=== PATIENT | female | born 1975 | race Caucasian/White ===

== ENCOUNTER 2018-04-23 13:22 | Day surgery (SDC) | payer OTHER ==
[~2018-04-23] VITALS: Ht 157.5 cm; Wt 74.9 kg
[2018-04-23 14:45] VITALS: Ht 157.5 cm; Wt 74.9 kg
[2018-04-23] MEDS ORDERED: NO MEDS (14:50)
--- NOTE | 2018-04-23 14:52 | PREAC ---
Date/Time of Note Date/Time of Note DATE: 04/23/18 TIME: 14:50 Anesthesia Eval and Record Evaluation Time Pre-Procedure Interview DATE: 04/23/18 TIME: 14:50 Age 42 Sex female NPO: 8 hrs Preoperative diagnosis Abdominal pain Planned procedure Colonoscopy Past Medical History Past Medical History: None Surgery & Anesthesia Issues No known issue Meds Anticoagulation: No Beta Bella within 24 hr: No Reason Beta Bella not given: Pt. not on B-Bella Reported Medications [No Meds] No Conflict Check 04/23/18 Meds reviewed: Yes Allergies Coded Allergies: No Known Allergy (Unverified , 04/23/18) Allergies Reviewed: Yes Labs/Studies Labs Reviewed: Reviewed by anesthesiologist test: Negative Studies: ECG Pre-procedure Exam Last vitals BP:112/56, P;74, spo2:100%, T:98,8 Airway: Adequate mouth opening, Adequate thyromental dist Mallampati: Mallampati II Teeth: Normal Lung: Normal Heart: Normal ASA Physical Status ASA physical status: 2 Emergency: None Planned Anesthetic General/MAC: MAC Planned Pain Management Parenteral pain med Pre-operative Attestations Prior to commencing anesthesia and surgery, the patient was re-evaluated, there was verification of: *The patient's identity *The results of appropriate recent lab work and preoperative vital signs *The above evaluation not changing prior to induction *Anesthetic plan, risk benefits, alternative and complications discussed with patient/family; questions answered; patient/family understands, accepts and wishes to proceed. ANGELIA SHARIF MD Apr 23, 2018 14:52
[2018-04-23] MEDS ORDERED: LIDOCAINE 2% (SDV) 5 ML INJ ONE (14:54)
[2018-04-23] MEDS ORDERED: PROPOFOL 60 ML ONE (14:54)
[2018-04-23 15:00] VITALS: BP 128/80; PULSE 70; RESP 18
--- NOTE | 2018-04-23 15:21 | PAC ---
Date/Time of Note Date/Time of Note DATE: 04/23/18 TIME: 15:19 Post-Anesthesia Notes Post-Anesthesia Note Last documented vital signs Vital Signs Date Temp Pulse Resp B/P (MAP) Pulse Ox O2 O2 Flow FiO2 Time Delivery Rate 04/23/18 98.1 70 18 128/80 100 Room Air 15:00 (96) Activity: WNL Respiratory function: WNL Cardiovascular function: WNL Mental status: Baseline Pain reasonably controlled: Yes Hydration appropriate: Yes Nausea/Vomiting absent: Yes Comments BP:118/58, P:78, spo2:100, T:98,8 ANGELIA SHARIF MD Apr 23, 2018 15:21
[2018-04-23] MEDS ORDERED: ONDANSETRON 4 MG INJ IV PRN (15:30)
[2018-04-23] MEDS ORDERED: FENTAnyl 50 MCG/ML VIAL IV PRN (15:30)
[2018-04-23 15:41] VITALS: BP 109/76; PULSE 78; RESP 18
== END 2018-04-23 16:46 | disposition home or self-care (01) ==
LOC: GIL 13:22
PROVIDERS: ATTEND Internal Medicine Gastroenterology
DX: K63.89 Other specified diseases of intestine (principal)
CPT/HCPCS: 45380; 84703; Z7610; 88305